=== PATIENT | male | born 1990 ===

== ENCOUNTER 2020-03-31 16:57 | Emergency (ER) | payer SELFPAY ==
[2020-03-31] MEDS ORDERED: Boostrix 0.5 ML VIAL ONE (17:03)
[2020-03-31] MEDS ORDERED: Lidocaine 1% w/Epinephrine 1:100K 20 ML VIAL ONE (17:03)
== END 2020-03-31 17:58 | disposition home or self-care (01) ==
LOC: ERS 16:57
DX: S01.01XA Laceration without foreign body of scalp, initial encounter (principal); S01.312A Laceration without foreign body of left ear, initial encounter; Z23 Encounter for immunization; Y04.8XXA Assault by other bodily force, initial encounter
CPT/HCPCS: 12002; 12011; 90471; 90715